=== PATIENT | male | born 1960 | race Hispanic/Latino ===

== ENCOUNTER 2017-04-04 10:58 | Emergency (ER) | payer SELFPAY ==
[2017-04-04] MEDS ORDERED: HYDRALAZINE HCL 20 MG/ML VIAL ONE (11:33)
[2017-04-04] MEDS ORDERED: ACETAMINOPHEN-CODEINE ELIXIR 5 ML UDCUP ONE (11:34)
== END 2017-04-04 12:32 | disposition home or self-care (01) ==
LOC: EDH 10:58
DX: S20.211A Contusion of right front wall of thorax, initial encounter (principal); I10 Essential (primary) hypertension; E78.5 Hyperlipidemia, unspecified; E11.9 Type 2 diabetes mellitus without complications; I25.10 Atherosclerotic heart disease of native coronary artery without angina pectoris; Z72.0 Tobacco use; W10.8XXA Fall (on) (from) other stairs and steps, initial encounter; Y93.89 Activity, other specified; Y92.89 Other specified places as the place of occurrence of the external cause; Y99.8 Other external cause status
CPT/HCPCS: 71101; 96374; 99284; J0360

== ENCOUNTER → 2018-03-10 | Outpatient (CLI) | payer OTHER | END | disposition home or self-care (01) | LOC: OIH 12:40 | PROVIDERS: ATTEND Internal Medicine | DX: I10 Essential (primary) hypertension (principal) | CPT/HCPCS: 71046 ==

== ENCOUNTER 2022-08-06 20:56 | Emergency (ER) | payer OTHER ==
[2022-08-06 21:17] VITALS: BP 161/96
[2022-08-06 21:20] LABS: BASOPHILS % (AUTO) 1.2 % (0.0-5.0); EOSINOPHILS % (AUTO) 1.3 % (0.0-8.0); HEMATOCRIT 42.4 % (42-54); LYMPHOCYTES % (AUTO) 40.1 % (21.0-51.0); MEAN CORPUSCULAR HGB CONC 34.7 g/dL (32.0-36.0); MEAN CORPUSCULAR VOLUME 92.2 fL (79-99); MONOCYTES % (AUTO) 11.4 % (3.0-13.0); NEUTROPHILS % (AUTO) 45.6 % (40.0-77.0); PLATELET COUNT (AUTO) 270 K/uL (130-400); RED CELL DISTRIBUTION WIDTH 12.9 % (11.0-15.5); WHITE BLOOD COUNT (AUTO) 7.5 K/uL (4.8-10.8)
[2022-08-06] MEDS ORDERED: FAMOTIDINE 20MG VIAL IV ONE (21:30)
[2022-08-06] MEDS ORDERED: METOCLOPRAMIDE 10 MG/2 ML VIAL IVP ONE (21:30)
[2022-08-06 21:33] LABS: CREATININE 0.8 mg/dL (0.5-1.5); POTASSIUM 4.2 mmol/L (3.5-5.1)
[2022-08-06 21:46] LABS: ALBUMIN 3.8 g/dL (3.5-5.0); MAGNESIUM 2.1 mg/dL (1.80-2.40); THYROID STIMULATING HORMONE 2.63 uIU/mL (0.36-3.74); TOTAL PROTEIN, SERUM 7.5 g/dL (6.0-8.3)
[2022-08-06 22:44] LABS: APPEARANCE,URINE CLEAR (CLEAR); BILIRUBIN,URINE NEGATIVE (NEGATIVE); COLOR,URINE COLORLESS (YELLOW); GLUCOSE, URINE (UA) NEGATIVE (NEGATIVE); KETONES,URINE NEGATIVE (NEGATIVE); LEUKOCYTE ESTERASE ,URINE NEGATIVE Leu/uL (NEGATIVE); NITRATE,URINE NEGATIVE (NEGATIVE); OCCULT BLOOD,URINE NEGATIVE (NEGATIVE); PROTEIN,URINE NEGATIVE (NEGATIVE); UROBILINOGEN,URINE 0.2 mg/dL (0.2-1.0)
[2022-08-06 22:52] LABS: AMPHET/METH SCREEN,URINE NEGATIVE (NEGATIVE); BARBITURATE SCREEN, URINE NEGATIVE (NEGATIVE); BENZODIAZEPINES SCREEN,URINE NEGATIVE (NEGATIVE); CANNABINOID SCREEN,URINE NEGATIVE (NEGATIVE); COCAINE SCREEN,URINE POSITIVE (NEGATIVE); OPIATE SCREEN,URINE NEGATIVE (NEGATIVE); PHENCYCLIDINE SCREEN,URINE NEGATIVE (NEGATIVE)
[2022-08-06] MEDS ORDERED: ASPIRIN 325MG TAB PO ONE (23:30)
[2022-08-06] MEDS ORDERED: LORAZEPAM 2 MG/ML 1 ML VIAL IVP ONE (23:30)
[2022-08-06] MEDS ORDERED: NITROGLYCERIN 1GM OINT 1 INCH/1GM TD ONE (23:30)
[2022-08-06] MEDS ORDERED: 0.9%NACL 1000ML 1,000 ML IV ONE (23:30)
[2022-08-07] MEDS ORDERED: CEFTRIAXONE 2GM VIAL IVPB ONE (01:30)
[2022-08-07] MEDS ORDERED: METO-296 PO (01:34)
[2022-08-07] MEDS ORDERED: AMOX-420 PO (01:34)
== END 2022-08-07 03:45 | disposition home or self-care (01) ==
LOC: EDH 20:56
DX: F10.129 Alcohol abuse with intoxication, unspecified (principal); F14.90 Cocaine use, unspecified, uncomplicated; H70.90 Unspecified mastoiditis, unspecified ear
CPT/HCPCS: 99285; 96365; 96375; 70450; 71045; 96361; 84443; 83735; 84484 ×2; 80053; 80305; 85025; 36415; 93005 ×2; 81003; J3490; J7030; J2060; J2765; J0696

== ENCOUNTER → 2022-08-29 | Outpatient (CLI) | payer OTHER ==
[~2022-08-29] MED LIST: AMOX-420 PO; METO-296 PO
== END | disposition home or self-care (01) ==
LOC: RAH 11:22
PROVIDERS: ATTEND Internal Medicine
DX: M47.22 Other spondylosis with radiculopathy, cervical region (principal); R26.81 Unsteadiness on feet; R29.898 Other symptoms and signs involving the musculoskeletal system; M48.07 Spinal stenosis, lumbosacral region; I70.0 Atherosclerosis of aorta
CPT/HCPCS: 72040; 72100

== ENCOUNTER 2023-01-19 15:49 | Emergency (ER) | payer OTHER ==
[~2023-01-19] VITALS: Ht 167.6 cm; Wt 90.7 kg
[2023-01-19 16:14] VITALS: BP 171/95; O2SAT 98
[2023-01-19 18:17] LABS: BASOPHILS # (AUTO) 0.05 K/uL (0.00-0.20); BASOPHILS % (AUTO) 0.5 % (0.0-5.0); HEMATOCRIT 43.6 % (42-54); IMMATURE GRANULOCYTE ABSOLUTE 0.03 K/uL (0-1); LYMPHOCYTES # (AUTO) 1.7 K/uL (1.0-4.8); LYMPHOCYTES % (AUTO) 17.6 % (21.0-51.0); MEAN CORPUSCULAR HEMOGLOBIN 31.6 pg (27.0-33.0); MEAN CORPUSCULAR HGB CONC 34.2 g/dL (32.0-36.0); MEAN CORPUSCULAR VOLUME 92.6 fL (79-99); MONOCYTES # (AUTO) 0.9 K/uL (0.1-1.0); MONOCYTES % (AUTO) 9.1 % (3.0-13.0); NEUTROPHILS # (AUTO) 7.1 K/uL (1.8-7.7); NEUTROPHILS % (AUTO) 71.5 % (40.0-77.0); PLATELET COUNT (AUTO) 308 K/uL (130-400); RED BLOOD CELL COUNT(AUTO) 4.71 MIL/uL (4.50-6.20); WHITE BLOOD COUNT (AUTO) 9.9 K/uL (4.8-10.8)
[2023-01-19] MEDS ORDERED: ALBUTEROL 0.083% 2.5 MG/3 ML INH IH ONE (18:30)
[2023-01-19 18:38] VITALS: PULSE 74; RESP 20
[2023-01-19 18:38] LABS: CREATININE 0.8 mg/dL (0.5-1.5); POTASSIUM 3.8 mmol/L (3.5-5.1)
[2023-01-19 18:47] LABS: ALBUMIN 3.6 g/dL (3.5-5.0); BILIRUBIN,TOTAL 0.4 mg/dL (0.2-1.0); TOTAL PROTEIN, SERUM 7.7 g/dL (6.0-8.3)
[2023-01-19] MEDS ORDERED: ALBUHFA IH (19:46)
[2023-01-19] MEDS ORDERED: METH4TAB3 PO (19:46)
== END 2023-01-19 20:29 | disposition home or self-care (01) ==
LOC: EDH 15:49
DX: R07.89 Other chest pain (principal); R06.00 Dyspnea, unspecified; E11.9 Type 2 diabetes mellitus without complications; E78.00 Pure hypercholesterolemia, unspecified; I10 Essential (primary) hypertension; Z95.5 Presence of coronary angioplasty implant and graft
CPT/HCPCS: 36415; 71045; 80053; 84484; 85025; 93005; 94640

== ENCOUNTER → 2023-06-08 | Outpatient (CLI) | payer OTHER ==
[~2023-06-08] MED LIST changes: +ALBUHFA IH; +METH4TAB3 PO
[2023-06-08 10:38] LABS: CREATININE 1.1 mg/dL (0.5-1.3)
== END | disposition home or self-care (01) ==
LOC: LAB 10:00
PROVIDERS: ATTEND Thoracic Surgery (Cardiothoracic Vascular Surgery)
DX: I73.9 Peripheral vascular disease, unspecified (principal)
CPT/HCPCS: 36415; 82565; 84520

== ENCOUNTER → 2023-06-11 | Outpatient (CLI) | payer OTHER ==
[~2023-06-11] MED LIST changes: +IOHEXOL 350 MG/ML 100ML INFUS..BTL IV ONE; +IOHEXOL-350 50ML VIAL IV ONE
== END | disposition home or self-care (01) ==
LOC: RAH 09:05
PROVIDERS: ATTEND Thoracic Surgery (Cardiothoracic Vascular Surgery)
DX: I70.0 Atherosclerosis of aorta (principal); I73.9 Peripheral vascular disease, unspecified; K76.0 Fatty (change of) liver, not elsewhere classified; R16.0 Hepatomegaly, not elsewhere classified; M47.815 Spondylosis without myelopathy or radiculopathy, thoracolumbar region; E27.8 Other specified disorders of adrenal gland; K42.9 Umbilical hernia without obstruction or gangrene; K55.1 Chronic vascular disorders of intestine
CPT/HCPCS: 75635; Q9967 ×2

== ENCOUNTER 2024-06-09 05:30 | Day surgery (SDC) | payer OTHER ==
[2024-06-08 12:27] LABS: BASOPHILS # (AUTO) 0.06 K/uL (0.00-0.20); BASOPHILS % (AUTO) 0.7 % (0.0-5.0); EOSINOPHILS # (AUTO) 0.16 K/uL (0.00-0.70); EOSINOPHILS % (AUTO) 1.9 % (0.0-8.0); IMMATURE GRANULOCYTE ABSOLUTE 0.04 K/uL (0-1); LYMPHOCYTES # (AUTO) 2.2 K/uL (1.0-4.8); LYMPHOCYTES % (AUTO) 26.1 % (21.0-51.0); MEAN CORPUSCULAR HEMOGLOBIN 30.9 pg (27.0-33.0); MEAN CORPUSCULAR HGB CONC 33.6 g/dL (32.0-36.0); MEAN CORPUSCULAR VOLUME 92.1 fL (79-99); MONOCYTES # (AUTO) 0.8 K/uL (0.1-1.0); MONOCYTES % (AUTO) 9.8 % (3.0-13.0); NEUTROPHILS # (AUTO) 5.1 K/uL (1.8-7.7); PLATELET COUNT (AUTO) 345 K/uL (130-400); RED BLOOD CELL COUNT(AUTO) 4.56 MIL/uL (4.50-6.20); RED CELL DISTRIBUTION WIDTH 14.5 % (11.0-15.5); WHITE BLOOD COUNT (AUTO) 8.4 K/uL (4.8-10.8)
[2024-06-08 12:45] LABS: CREATININE 0.9 mg/dL (0.5-1.3); POTASSIUM 4.7 mmol/L (3.5-5.1)
[2024-06-08 12:59] VITALS: BP_SYST 187; BP_SYST 199; BP_DIAS 84; BP_DIAS 91; PULSE 88; RESP 19; TEMP 97.4
[2024-06-09] VITALS (16 sets, daily range): BP systolic 100–158; BP diastolic 63–88; PULSE 71–78; RESP 15–20; TEMP 96.9–97.9
[~2024-06-09] VITALS: Ht 167.6 cm; Wt 109.1 kg
[~2024-06-09 05:30] MED LIST changes: -AMOX-420 PO; +CILO50TA2 PO; +EZET10TA48 PO; +FLUT1BLS3 IH; +FURO20TA4 PO; +HYDR-4068 PO; -IOHEXOL 350 MG/ML 100ML INFUS..BTL IV ONE; -IOHEXOL-350 50ML VIAL IV ONE; +METF-444 PO; -METH4TAB3 PO; -METO-296 PO; +METO-391 PO; +ROSU20TA98 PO; +SACU1TAB PO; +SPIR25TA6 PO; +TAMS-55 PO; +VERI5TAB PO
[2024-06-09] MEDS: ceFAZolin SODIUM 1 GM VIAL ONE (06:40)
[2024-06-09] MEDS: 0.9%NACL 1000ML 1,000 ML IV ONE (06:40)
[2024-06-09] MEDS: ceFAZolin SODIUM 2 GM VIAL ONE (06:40)
[2024-06-09] MEDS ORDERED: NEOSTIGMINE METHYLSULFATE 1MG/ML IV ONE (06:58)
[2024-06-09] MEDS ORDERED: SUCCINYLCHOLINE CHLORIDE 20 MG/ML 10 ML VIAL ONE (06:58)
[2024-06-09] MEDS ORDERED: ondanSETRON 4MG INJ ONE (06:58)
[2024-06-09] MEDS ORDERED: rocuRONium bROMide 10MG/1ML 5ML VL ONE (06:58)
[2024-06-09] MEDS ORDERED: GLYCOPYRROLATE 0.2 MG/ML 5 ML VIAL ONE (06:58)
[2024-06-09] MEDS ORDERED: proPOFol 10 MG/ML 20ML VIAL IV ONE (06:58)
[2024-06-09] MEDS ORDERED: LIDOCAINE PF 100MG/5ML (2%) SYRINGE 5ML ONE (06:58)
[2024-06-09] MEDS ORDERED: dexaMETHasone SOD PHOSPHATE 10MG/ML 1ML VIAL ONE (06:58)
[2024-06-09] MEDS ORDERED: FENTanyl CITRate PF 50 MCG/1 ML 2ML VIAL ONE (06:59)
[2024-06-09] MEDS ORDERED: MIDAZOLAM HCL 1 MG/ML 2ML VIAL ONE (06:59)
[2024-06-09] MEDS ORDERED: ketaMINE 50MG/ML SYRINGE 50 MG/ML DISP.SYRIN ONE (07:05)
[2024-06-09] MEDS ORDERED: BUPIvacaine/PF 0.25% 30ML VIAL IJ ONE (07:10)
[2024-06-09] MEDS ORDERED: SACU1TAB PO (07:14)
[2024-06-09] MEDS: ceFAZolin SODIUM 2 GM VIAL IVPB ONE (07:23)
[2024-06-09] MEDS ORDERED: DOCU-116 PO (07:47)
[2024-06-09] MEDS ORDERED: TRAM100T34 PO (07:47)
--- NOTE | 2024-06-09 07:51 | OP ---
Operative Note: DATE OF PROCEDURE: 06/09/24 SURGEON: CARTER MARQUEZ MD BLOOD COLLECTOR: [Arlene Borges CFA] ANESTHESIA: [General endotracheal anesthesia] ANESTHESIOLOGIST/HEALTH INFORMATICS ADVISOR: [[facility] anesthesia team] PREOPERATIVE DIAGNOSIS: [Scalp mass] POSTOPERATIVE DIAGNOSIS: [Same] SYNOPSIS: [Patient with a large scalp mass causing discomfort Excision of large scalp mass Total size of the mass excised was approximately 5 cm in diameter All sponges and instruments were accounted for at the end the case Patient tolerated the procedure well, there no complications] PROCEDURE: [Excision of large scalp mass] ESTIMATED BLOOD LOSS: [Less than 10 cc] INDICATIONS: [Scalp mass causing patient discomfort] DESCRIPTION OF PROCEDURE: [On day of surgery patient presented to the hospital. Patient was brought back to operating room. Positioned in the supine position. Preoperative antibiotics were given. Bilateral SCDs were placed. Patient was intubated. Patient then was prepped and draped the usual fashion. Local anesthetic was instilled into the skin overlying the mass. Skin incision was made. Dissection down to and around the entire mass was done electrocautery. The mass was actually sitting on the periosteum. The mass was removed in total. It measured approximately 5 cm in diameter. Then the cavity was copiously irrigated. All irrigation was removed. Appropriate hemostasis was observed. Mass was sent to the pathologist. And the cavity was closed with lorraine. Appropriate dressings were placed. Patient was woken up, transferred to a stretcher, taken to recovery recovery. All sponges and instruments were accounted for at the end the case. Patient tolerated the procedure well, there no complications.] CARTER MARQUEZ MD Jun 09, 2024 07:51
--- NOTE | 2024-06-09 09:00 | NUR ---
dressing: dressing to head dry/intact.
== END 2024-06-09 09:48 | disposition home or self-care (01) ==
LOC: DAH 05:30
PROVIDERS: ATTEND Surgery
DX: R22.0 Localized swelling, mass and lump, head (principal); I10 Essential (primary) hypertension; E11.40 Type 2 diabetes mellitus with diabetic neuropathy, unspecified; F32.A Depression, unspecified; E78.00 Pure hypercholesterolemia, unspecified; F17.210 Nicotine dependence, cigarettes, uncomplicated; Z86.73 Personal history of transient ischemic attack (TIA), and cerebral infarction without residual deficits; Z79.899 Other long term (current) drug therapy; Z98.890 Other specified postprocedural states
CPT/HCPCS: 21014; 80048; 85025; 36415; 82948 ×2; 88304; A4600; A6260; A4663; J3010; J0690 ×3; J1100; J0330; J7030; J0665 ×2; J3490 ×3; J2003; J2250; J2704; J2405; J2710; A4930; A4215; A4223; A4213; A4222; A4221